=== PATIENT | male | born 1970 | race Caucasian/White ===

== ENCOUNTER 2016-04-26 13:06 | Emergency (ER) | payer OTHER ==
[2016-04-26 13:18] VITALS: BP 148/93
--- NOTE | 2016-04-26 14:07 | UC ---
Dizzy HPI HPI Summary: SUDDEN ONSET OF DIZZINESS THIS MORNING WHILE ROLLING OVER IN BED TO TURN OFF ALARM CLOCK. LASTED LESS THAN A MINUTE BUT THEN HAD SOME RESIDUAL LIGHTHEADEDNESS AFTER. HAS HAD EPISODES THROUGHOUT THE DAY WITH CHANGE IN HEAD POSITION. SX IMPROVE WHEN HE IS STILL. DENIES NAUSEA, HEARING LOSS, TINNITIS. NO RECENT ILLNESS. - History Of Current Complaint Chief Complaint: UCHeadache Stated Complaint: DIZZY Time Seen by Provider: 04/26/16 13:34 Hx Obtained From: Patient Onset/Duration: Sudden Onset, Lasting Hours, Still Present Timing: Minutes Severity Initially: Moderate Severity Currently: Moderate Pain Intensity: 1 Pain Scale Used: 0-10 Numeric Character: Room Spinning, Lightheaded Aggravating Factor(s): Position Change, Change In Head Position Alleviating Factor(s): Rest Associated Signs And Symptoms: Negative: Nausea, Vomiting, Diaphoresis, Tinnitus , Chest Pain, SOB, Palpitations, Visual Changes, Decreased Oral Intake, Change In Medication - Allergies/Home Medications Allergies/Adverse Reactions: Allergies Allergy/AdvReac Type Severity Reaction Status Date / Time No Known Allergies Allergy Verified 04/26/16 13:12 Home Medications: Home Medications Omeprazole CAP* [Prilosec CAP* 20 MG] 20 mg PO DAILY PRN 04/26/16 [History Confirmed 04/26/16] PMH/Surg Hx/FS Hx/Imm Hx Endocrine History Of: Denies: Diabetes, Thyroid Disease Cardiovascular History Of: Reports: Hypertension Denies: Cardiac Disorders Respiratory History Of: Denies: COPD, Asthma GI/ History Of: Denies: Ulcer - Surgical History Surgical History: None - Family History Known Family History: Positive: Hypertension, Diabetes - Social History Alcohol Use: Weekly Alcohol Amount: 1-2 glasses of wine couple times of week Substance Use Type: None Smoking Status (MU): Former Smoker Type: Cigarettes Length of Time of Smoking/Using Tobacco: 11 YEARS Have You Smoked in the Last Year: No When Did the Patient Quit Smoking/Using Tobacco: 02/17/1999 Review of Systems Constitutional: Negative ENT: Negative Respiratory: Negative Cardiovascular: Negative Gastrointestinal: Negative Neurological: Headache, Other - DIZZY All Other Systems Reviewed And Are Negative: Yes Physical Exam Triage Information Reviewed: Yes Appearance: Well-Appearing, No Pain Distress, Well-Nourished Vital Signs: Initial Vital Signs Temp 96.0 F 04/26/16 13:13 Pulse 90 04/26/16 13:13 Resp 16 04/26/16 13:13 BP 148/93 04/26/16 13:13 Pulse Ox 97 04/26/16 13:13 Eye Exam: Normal Eyes: Positive: Conjunctiva Clear ENT: Positive: Hearing grossly normal Neck: Positive: Supple, Nontender, No Lymphadenopathy, Other: - NEG KERNIG, NEG BRUDZINSKI Respiratory Exam: Normal Cardiovascular Exam: Normal Abdomen Description: Positive: Soft Musculoskeletal: Positive: No Edema Neurological: Positive: Alert, Other: - POS GINETTE-HALLPIKE Psychological: Positive: Age Appropriate Behavior Skin: Negative: rashes Diagnostics - EKG Cardiac Rate: NL - 77 BPM Cardiac Rhythm: Sinus: Normal Ectopy: None ST Segment: Normal Dizzy Course/Dx - Differential Dx/Diagnosis Provider Diagnoses: BPPV Discharge - Discharge Plan Condition: Stable Disposition: HOME Prescriptions: Meclizine HCl [Meclizine 25] 25 mg PO TID PRN #30 tab PRN Reason: Dizziness Patient Education Materials: Benign Paroxysmal Positional Vertigo (ED) Referrals: Madi Stringer PA [Primary Care Provider] - If Needed Additional Instructions: Benign paroxysmal positional vertigo (BPPV) - sometimes called benign positional vertigo, positional vertigo, postural vertigo, or simply vertigo, is probably the most commonly recognized cause of vertigo. It is most commonly attributed to calcium debris within the posterior semicircular canal (inner ear) , known as canalithiasis. Classically, patients describe a brief spinning sensation brought on when turning in bed or tilting the head backward to look up. The dizziness is quite brief, usually seconds, but less commonly it can last minutes. It may be severe enough to halt activity for this duration. Patients may experience nausea but rarely vomit. Ear pain, hearing loss, and tinnitus are absent. The diagnosis of BPPV is suggested by its historical description and confirmed by Ginette-Hallpike maneuver. The natural history of BPPV is one of repeated, brief vertiginous episodes that are predictably provoked. BPPV can be treated by canalith repositioning maneuvers. HANDOUTS PROVIDED FOR MIN MOORE
== END 2016-04-26 14:22 | disposition home or self-care (01) ==
LOC: UCEAST 13:06
DX: H81.10 Benign paroxysmal vertigo, unspecified ear (principal); Z87.891 Personal history of nicotine dependence
CPT/HCPCS: 93005; 99212; G0463

== ENCOUNTER 2017-04-01 10:46 | Emergency (ER) | payer OTHER ==
[2017-04-01 11:33] VITALS: BP 138/89
--- NOTE | 2017-04-01 11:35 | UC ---
FLU HPI - HPI Summary HPI Summary: Pt presents with sinus pain/pressure/congestion, productive cough, and chest congestion for the last 2 days. He tells me his was diagnosed with the flu yesterday and he is asking for treatment with tamifu. Has not taken anything for his symptoms. Denies fever, chills, SOB, chest pain, abdominal pain, n/v/d/c - History of Current Complaint Chief Complaint: UCRespiratory Stated Complaint: CONGESTED Time Seen by Provider: 04/01/17 11:13 Hx Obtained From: Patient Severity Currently: None Pain Intensity: 0 - Allergy/Home Medications Allergies/Adverse Reactions: Allergies Allergy/AdvReac Type Severity Reaction Status Date / Time No Known Allergies Allergy Verified 04/26/16 13:12 Home Medications: Home Medications D-Methorphan/PE/Acetaminophen [Day Multi-Symp Flu-Severe Cold] 04/01/17 [ History] PMH/Surg Hx/FS Hx/Imm Hx GI/ History: Gastroesophageal Reflux - Surgical History Surgical History: None - Family History Known Family History: Positive: None, Hypertension, Diabetes - Social History Occupation: Employed Full-time Lives: With Family Alcohol Use: Weekly Alcohol Amount: 1-2 glasses of wine couple times of week Substance Use Type: None Smoking Status (MU): Former Smoker Type: Cigarettes Length of Time of Smoking/Using Tobacco: 11 YEARS Have You Smoked in the Last Year: No When Did the Patient Quit Smoking/Using Tobacco: 02/17/1999 Review of Systems Constitutional: Negative Skin: Negative Eyes: Negative ENT: Sinus Congestion, Sinus Pain/Tenderness Respiratory: Cough Cardiovascular: Negative Gastrointestinal: Negative Musculoskeletal: Negative Neurological: Negative Psychological: Negative All Other Systems Reviewed And Are Negative: Yes Physical Exam Triage Information Reviewed: Yes Appearance: Well-Appearing, No Pain Distress, Well-Nourished Vital Signs: Initial Vital Signs Temp 97.3 F 04/01/17 11:25 Pulse 84 04/01/17 11:25 Resp 18 04/01/17 11:25 BP 138/89 04/01/17 11:25 Pulse Ox 100 04/01/17 11:25 Vital Signs Reviewed: Yes Eyes: Positive: Conjunctiva Clear. Negative: Conjunctiva Inflamed, Discharge ENT: Positive: Hearing grossly normal, Pharynx normal, TMs normal, Uvula midline. Negative: Pharyngeal erythema, Nasal congestion, Nasal drainage, TM bulging, TM dull, TM red, Tonsillar swelling, Tonsillar exudate, Sinus tenderness Neck: Positive: Supple, Nontender, No Lymphadenopathy Respiratory: Positive: No respiratory distress, No accessory muscle use, Crackles - AQUILINO. Negative: Wheezing Cardiovascular: Positive: RRR, No Murmur, Pulses Normal Neurological: Positive: Alert Psychological: Positive: Age Appropriate Behavior Skin: Negative: rashes Flu Course/Dx - Course Course Of Treatment: I told pt I would like to get a CXR due to his AQUILINO crackles , but he refused as he has to take his daughter to work. Will treat as if PNA. - Differential Dx/Diagnosis Provider Diagnoses: Influenza Discharge - Discharge Plan Condition: Stable Disposition: HOME Prescriptions: Azithromycin TAB* [Zithromax TAB (Z-MARY) 250 mg #6 tabs] 2 tab PO .TODAY, THEN 1 DAILY #1 mary Oseltamivir CAP* [Tamiflu CAP*] 75 mg PO BID #10 cap Patient Education Materials: Influenza (DC) Referrals: Madi Stringer PA [Primary Care Provider] - Additional Instructions: If you develop a fever, shortness of breath, chest pain, new or worsening symptoms - please call your PCP or go to the ED. Your blood pressure was high at todays visit. Please see your primary provider within 4 weeks for recheck and re-evaluation.
== END 2017-04-01 11:57 | disposition home or self-care (01) ==
LOC: UCEAST 10:46
DX: J11.1 Influenza due to unidentified influenza virus with other respiratory manifestations (principal); K21.9 Gastro-esophageal reflux disease without esophagitis; Z87.891 Personal history of nicotine dependence
CPT/HCPCS: 99212; G0463

== ENCOUNTER 2018-02-17 14:10 | Emergency (ER) | payer OTHER ==
[2018-02-17 14:23] VITALS: BP 170/80
--- NOTE | 2018-02-17 14:45 | UC ---
Dizzy HPI HPI Summary: Patient reports intermittent episodes of dizziness associated with shortness of breath, sweats and nausea over the past 1 month. Has been increasing in frequency over the past week or so. Is now occurring multiple times daily. Had 3 episodes within one hour just prior to arrival. Denies chest pain or fever. - History Of Current Complaint Chief Complaint: UCRespiratory Stated Complaint: SHORTNESS OF BREATH Time Seen by Provider: 02/17/18 14:29 Hx Obtained From: Patient, Family/Mental Health Program Director - Onset/Duration: Gradual Onset, Lasting Weeks, Still Present Timing: Intermittent Episode Lasting - MINUTES Severity Initially: Moderate Severity Currently: Moderate Pain Intensity: 0 Pain Scale Used: 0-10 Numeric Character: Lightheaded, Dizzy Aggravating Factor(s): Nothing Alleviating Factor(s): Other - SPONTANEOUS RESOLUTION Associated Signs And Symptoms: Positive: Nausea, SOB. Negative: Chest Pain - Allergies/Home Medications Allergies/Adverse Reactions: Allergies Allergy/AdvReac Type Severity Reaction Status Date / Time No Known Allergies Allergy Verified 02/17/18 14:23 Home Medications: Home Medications Ibuprofen TAB* [Advil TAB*] 200 mg PO Q6H PRN 02/17/18 [History Confirmed ] PMH/Surg Hx/FS Hx/Imm Hx Cardiovascular History: Hypertension - UNTREATED - Surgical History Surgical History: None - Family History Known Family History: Positive: Cardiac Disease, Hypertension, Diabetes - Social History Alcohol Use: Occasionally Alcohol Amount: 1-2 glasses of wine couple times of week Substance Use Type: None Smoking Status (MU): Former Smoker Type: Cigarettes Length of Time of Smoking/Using Tobacco: 11 YEARS Have You Smoked in the Last Year: No When Did the Patient Quit Smoking/Using Tobacco: 02/17/1999 Review of Systems All Other Systems Reviewed And Are Negative: Yes Constitutional: Positive: Fatigue Skin: Positive: Other - SWEATY Respiratory: Positive: Shortness Of Breath Cardiovascular: Positive: Negative Gastrointestinal: Positive: Negative Neurological: Positive: Other - DIZZY Physical Exam Triage Information Reviewed: Yes Appearance: Well-Appearing, No Pain Distress, Well-Nourished Vital Signs: Initial Vital Signs Temp 97.0 F 02/17/18 14:16 Pulse 81 02/17/18 14:16 Resp 16 02/17/18 14:16 BP 170/80 02/17/18 14:16 Pulse Ox 100 02/17/18 14:16 Vital Signs Reviewed: Yes Eyes: Positive: Conjunctiva Clear ENT: Positive: Hearing grossly normal Neck: Positive: Supple Respiratory Exam: Normal Cardiovascular: Positive: Other: - IRREGULAR Abdomen Description: Positive: Nontender, Soft Bowel Sounds: Positive: Present Musculoskeletal: Positive: No Edema Neurological: Positive: Alert Psychological: Positive: Age Appropriate Behavior Skin: Positive: Other - SWEATY Diagnostics - EKG Cardiac Rate: NL - 92BPM Cardiac Rhythm: Sinus: Normal Ectopy: PVCs ST Segment: Normal Dizzy Course/Dx - Course Course Of Treatment: PT OFFERED TRANSPORT TO THE ED BY AMBULANCE BUT DECLINES. ADVISED THAT BY NOT TRAVELING IN A MONITORED SETTING HE COULD BE RISKING WORSENING OF HIS CONDITION THAT COULD POSE A THREAT TO HIS LIFE, HEALTH AND MEDICAL SAFETY. HE VERBALIZES UNDERSTANDING AND CONTINUES TO DECLINE AMBULANCE TRANSFER. - Differential Dx/Diagnosis Provider Diagnosis: Dizziness, PVCs (premature ventricular contractions) Discharge - Sign-Out/Discharge Documenting (check all that apply): Patient Departure All imaging exams completed and their final reports reviewed: No Studies - Discharge Plan Condition: Stable Disposition: TRANS [facility]HER [facility] Patient Education Materials: Dizziness (ED) Referrals: Madi Stringer PA [Primary Care Provider] - If Needed Additional Instructions: [place] [facility] [facility] FOR FURTHER EVALUATION. YOU HAVE DECLINED TRANSFER TO THE ED BY AMBULANCE. BE ADVISED THAT BY NOT TRAVELING IN A MONITORED SETTING YOU COULD BE RISKING WORSENING OF YOUR CONDITION THAT COULD POSE A THREAT TO YOUR LIFE, HEALTH AND MEDICAL SAFETY. - Billing Disposition and Condition Condition: STABLE Disposition: Trans Higher Lvl of Care Fac
== END 2018-02-17 14:45 | disposition short-term general hospital (02) ==
LOC: UCEAST 14:10
DX: I49.3 Ventricular premature depolarization (principal); R42 Dizziness and giddiness; R11.0 Nausea; I10 Essential (primary) hypertension; Z87.891 Personal history of nicotine dependence
CPT/HCPCS: 93005; 99212; G0463

== ENCOUNTER 2018-02-17 15:03 | Observation (INO) | payer OTHER ==
[2018-02-17] MEDS ORDERED: Aspirin 81 mg CHEW TAB* 81 MG TAB.CHEW PO ONE (15:25)
--- NOTE | 2018-02-17 15:25 | ED ---
Palpitations / Dysrhythmia - HPI Summary HPI Summary: This patient is a 47 year old M presenting to [facility] after being sent by [facility] for an arrhythmia. The patient originally complained of SOB, dizziness, chills, and diaphoresis that occur together, he describes these as episodes. The patient rates the pain 2/10 in severity. Symptoms alleviated by breathing cold air and spontaneous resolution. He states sometime he will wake up in the middle of the night with SOB that he describes as gasping for air and that he does snore. He has had 4 of these episodes today. The EKG done at [facility] was done during of the episodes. He also c/o chest pressure unrelated to the episodes, it is worse with deep breaths. He is not on any prescription drugs currently. - History of Current Complaint Chief Complaint: EDDysrhythmPalp Time Seen by Provider: 02/17/18 15:15 Hx Obtained From: Patient Onset/Duration: Lasting Minutes, Resolved Timing: Constant Severity Initially: Moderate Severity Currently: None Character: Irregular - per [facility] Associated Signs & Symptoms: Shortness of Breath, Diaphoresis - Allergy/Home Medications Allergies/Adverse Reactions: Allergies Allergy/AdvReac Type Severity Reaction Status Date / Time No Known Allergies Allergy Verified 02/17/18 14:23 PMH/Surg Hx/FS Hx/Imm Hx Endocrine/Hematology History: Denies: Hx Diabetes, Hx Thyroid Disease Cardiovascular History: Reports: Hx Hypertension - NOT ON MEDS Denies: Hx Cardiac Arrest, Hx Peripheral Vascular Disease Respiratory History: Denies: Hx Asthma, Hx Chronic Obstructive Pulmonary Disease (COPD) GI History: Denies: Hx Ulcer Neurological History: Denies: Hx Seizures, Hx Spinal Cord Injury Psychiatric History: Denies: Hx Post Traumatic Stress Disorder Infectious Disease History: No Infectious Disease History: Denies: Hx Clostridium Difficile, Hx Hepatitis, Hx Human Immunodeficiency Virus (HIV), History Other Infectious Disease, Traveled Outside the [place] in Last 30 Days - Family History Known Family History: Positive: Cardiac Disease, Hypertension, Diabetes - Social History Alcohol Use: Occasionally Alcohol Amount: 1-2 glasses of wine couple times of week Substance Use Type: Reports: None Smoking Status (MU): Former Smoker Type: Cigarettes Length of Time of Smoking/Using Tobacco: 11 YEARS Have You Smoked in the Last Year: No Review of Systems Positive: Chills, Skin Diaphoresis. Negative: Fever Negative: Erythema Negative: Sore Throat Positive: Chest Pain Positive: Shortness Of Breath. Negative: Cough Negative: Abdominal Pain, Vomiting, Nausea Negative: dysuria, hematuria Negative: Myalgia, Edema Negative: Rash Neurological: Other - dizziness All Other Systems Reviewed And Are Negative: Yes Physical Exam - Summary Physical Exam Summary: Constitutional: Well-developed, Well-nourished, Alert. (-) Distressed Skin: diaphoretic HENT: Normocephalic; Atraumatic Eyes: Conjunctiva normal Neck: Musculoskeletal ROM normal neck. (-) JVD, (-) Stridor, (-) Tracheal deviation Cardio: Rhythm regular, rate normal, Heart sounds normal; Intact distal pulses; The pedal pulses are 2+ and symmetric. Radial pulses are 2+ and symmetric. (-) Murmur Pulmonary/Chest wall: Effort normal. (-) Respiratory distress, (-) Wheezes, (-) Rales Abd: Soft, (-) epigastric tenderness, (-) Distension, (-) Guarding, (-) Rebound Musculoskeletal: (-) Edema Lymph: (-) Cervical adenopathy Neuro: Alert, Oriented x3 Psych: Mood and affect Normal Triage Information Reviewed: Yes Vital Signs On Initial Exam: Initial Vitals Temp Pulse Resp BP Pulse Ox 96.5 F 47 18 178/82 99 02/17/18 15:05 02/17/18 15:05 02/17/18 15:05 02/17/18 15:05 02/17/18 15:05 Vital Signs Reviewed: Yes Diagnostics - Vital Signs Vital Signs Temp Pulse Resp BP Pulse Ox 02/17/18 15:20 99 02/17/18 15:18 92 23 161/102 99 02/17/18 15:15 67 95 02/17/18 15:05 96.5 F 47 18 178/82 99 - Laboratory Result Diagrams: 02/17/18 15:30 02/17/18 15:30 Lab Statement: Any lab studies that have been ordered have been reviewed, and results considered in the medical decision making process. - EKG 1516 Cardiac Rate: NL EKG Rhythm: Sinus Rhythm - at 80 BPM Summary of EKG Findings: no STEMI Course/Dx - Course Assessment/Plan: This patient is a 47 year old M presenting to [facility] after being sent by [facility] for an arrhythmia. The patient originally complained of SOB, dizziness, chills, and diaphoresis that occur together, he describes these as episodes. The patient rates the pain 2/10 in severity. Symptoms alleviated by breathing cold air and spontaneous resolution. He states sometime he will wake up in the middle of the night with the SOB and that he does snore. He has had 4 of these episodes today. The EKG done at [facility] was done during of the episodes. He also c/o chest pressure unrelated to the episodes, it is worse with deep breaths. He is not on any prescription drugs currently. An EKG reveals NSR and no STEMI. Blood work obtained. The patient will be admitted for serial troponins and a stress test. In the ED course the patient was given ASA, tylenol, and TUMS. We discussed patient care with Dr. Posey and she has accepted the patient for admission. Patient will be admitted. The patient is agreeable with this plan. - Diagnoses Provider Diagnoses: Dizziness, SOB (shortness of breath), Diaphoresis, Uncontrolled hypertension - Physician Notifications Discussed Care Of Patient With: Nelly Posey Time Discussed With Above Provider: 17:29 Instructed by Provider To: Admit As Observation Discharge - Sign-Out/Discharge Documenting (check all that apply): Patient Departure - admitted All imaging exams completed and their final reports reviewed: Yes - Discharge Plan Condition: Fair Disposition: ADMITTED TO [facility] - Attestation Statements Document Initiated by Scribe: Yes Documenting Scribe: Sukhjinder Salas Provider For Whom Scribe is Documenting (Include Credential): Ricky Cochran MD Scribe Attestation: Sukhjinder Lim , scribed for Ricky Cochran MD on 02/17/18 at 1834.
[2018-02-17 15:40] LABS: ABS Basophils 0.1 10^3/ul (0-0.2); ABS Eosinophils 0.1 10^3/ul (0-0.6); ABS Lymphocytes 2.3 10^3/ul (1.0-4.8); ABS Monocytes 0.9 10^3/ul (0-0.8); ABS Neutrophils 5.6 10^3/ul (1.5-7.7); ABS Nucleated RBC 0 10^3/ul; Eosinophil % 0.8 %; Hematocrit 47 % (42-52); Hemoglobin 16.1 g/dl (14.0-18.0); Lymphocyte % 25.4 %; Mean Corpuscular HGB Conc 34 g/dl (31-36); Mean Corpuscular Hemoglobin 31 pg (27-31); Mean Corpuscular Volume 91 fL (80-94); Mean Platelet Volume 7.8 fL (7.4-10.4); Nucleated Red Blood Cells % 0.1; Platelet Count 263 10^3/ul (150-450); Red Blood Count 5.21 10^6/ul (4.00-5.40); Red Cell Distribution Width 13 % (10.5-15); White Blood Count 8.9 10^3/ul (3.5-10.8)
[2018-02-17 16:08] LABS: Albumin 4.2 g/dL (3.2-5.2); Albumin/Globulin Ratio 1.6 (1-3); BUN/Creatinine Ratio 17.4 (8-20); Calcium 9.2 mg/dL (8.6-10.3); EGFR Non-African American 95.3 (>60); Globulin 2.7 g/dL (2-4); Potassium 4.1 mmol/L (3.5-5.0); Total Bilirubin 0.3 mg/dL (0.2-1.0); Total Protein 6.9 g/dL (6.4-8.9)
[2018-02-17 17:08] LABS: Free T4 0.81 ng/dL (0.61-1.12)
[2018-02-17] MEDS ORDERED: Calcium Carbonate CHEW TAB* 500 MG (TUMS) PO PRN (17:40)
[2018-02-17] MEDS ORDERED: Acetaminophen TAB* 325 MG PO PRN (17:40)
--- NOTE | 2018-02-17 19:52 | HP ---
CC: YAHIR Aleman * HISTORY AND PHYSICAL: DATE OF ADMISSION: 02/17/18 PRIMARY CARE PROVIDER: Dr. Ervin Stringer. CHIEF COMPLAINT: Dizziness and sweats. HISTORY OF PRESENT ILLNESS: Mr. Bear is a 47-year-old obese male who has no significant past medical history, but presents to initially urgent care with complaints of episodes of dizziness, shortness of breath, and diaphoresis and subsequently sent to the emergency room for evaluation. The patient states that over approximately the last 1 month or so, he has been having initially rare episodes where he would develop a sensation that he could not clear phlegm from his throat. He would then feel a beltran of hotness go through his body. He would then begin to develop profuse diaphoresis. He would feel lightheaded and dizzy and he would notice his blood pressure would go up. These ultimately would pass with time. He continued to have intermittent episodes of this; however, over the last 3 days or so, they have become much more intense and much more frequent. The patient's states that he has been waking up in the middle of the night frequently with this and not been getting more than a couple of hours of sleep at a time. The patient has become very concerned about these episodes and today while sitting in the car having another episode, he decided to come for evaluation. He describes these episodes as not being completely related to any one thing in particular. He at times had thought may be it was related to eating dairy; however, this has not proved to be true. He will have them no matter what he is eating. He will sometimes get them at rest and sometimes with exertion. PAST MEDICAL HISTORY: 1. GERD. 2. Episode of vertigo in 2017. PAST SURGICAL HISTORY: None. MEDICATIONS: None. ALLERGIES: None. FAMILY HISTORY: Mom is living, she is 78 and healthy. Dad is living, he is 80 and has a history of hypertension. SOCIAL HISTORY: The patient is a nonsmoker. He drinks alcohol on occasion. He works at [email or web address]. He is . He has 2 children. His is his healthcare proxy. REVIEW OF SYSTEMS: A complete 11-system review of systems is obtained. Pertinent positives and negatives are as per HPI and otherwise negative. PHYSICAL EXAMINATION GENERAL: The patient is a well-developed, middle-aged obese male, seen sitting up in the stretcher, in no acute distress. VITAL SIGNS: Blood pressure 120/87, pulse 83, respirations 12, temp 96.5, O2 sat 97% on room air. HEENT: Pupils are equal and round. Extraocular muscles are intact. Oropharynx is clear. Oral mucosa is moist. There is no submandibular, cervical , or supraclavicular adenopathy. Thyroid is not enlarged. No thyroid nodules noted. PULMONARY: Lungs are clear to auscultation bilaterally. CARDIAC: Normal S1, S2. Regular rate and rhythm. I do not appreciate any murmurs. There is trace right lower extremity pitting edema. ABDOMEN: Bowel sounds present. Abdomen is soft, nontender, nondistended. MUSCULOSKELETAL: There is no cyanosis or clubbing of the digits. There is full active range of motion of all 4 extremities. NEURO: Cranial nerves II through XII are grossly intact. Sensation is intact to light touch throughout. Strength is 5/5 and symmetric to both upper and lower extremities bilaterally. PSYCH: The patient is alert. He is oriented x3. Affect appears appropriate. SKIN: Warm and dry. There are no rashes. DIAGNOSTIC STUDIES/LAB DATA: WBC 8.9, hemoglobin 16.1, hematocrit 47, platelets 263. Sodium 139, potassium 4.1, chloride 106, CO2 27, BUN 15, creatinine 0.86, glucose 102. Lactic acid 1.2. Calcium 9.2, bilirubin 0.3, AST 15, ALT 28, alk phos 59. Troponin 0.01. Albumin 4.2. TSH pending. Free T4 0.81. EKG reveals normal sinus rhythm without any acute ST-T wave abnormalities. ASSESSMENT AND PLAN: Mr. Bear is a 47-year-old male with no significant past medical history who presents to the emergency room with complaints of episodes of feeling hot, short of breath, lightheaded, and diaphoretic. 1. Diaphoresis, shortness of breath, and dizziness. The etiology of this is not completely clear. Reportedly, the patient had a "full blown attack" while getting his EKG at [facility]. That EKG revealed sinus rhythm with frequent PVCs. I am suspicious that perhaps he is just quite symptomatic from PVCs. He will be monitored on telemetry. Transthoracic echocardiogram will be ordered as well and exercise stress test. The patient will also be evaluated for nocturnal hypoxia with nocturnal desaturation study. Further recommendations will be made tomorrow after cardiac testing is complete. 2. Gastroesophageal reflux disease. This is symptomatically managed. PRN Tums will be available. 3. DVT prophylaxis. According to the Adult Thrombosis Prophylaxis Risk Factor Assessment Guide, the patient has a total risk factor score of 2, making him moderate risk. Ambulation will be utilized as DVT prophylaxis. 4. Code status is full. TIME SPENT: 55 minutes was spent admitting this patient. [id number]/[facility] #: [id number] SO
[2018-02-17 19:56] LABS: TSH (Thyroid Stimulating Horm) 1.84 mcIU/mL (0.34-5.60)
[2018-02-18] MEDS ORDERED: Perflutren Lipid Microsphere* 3 ML VIAL ONE (08:52)
--- NOTE | 2018-02-18 14:19 | ECHO ---
Patient: CORRINE MORALES [facility] Rec#: [id number] : 1970 Date: 02/18/2018 Age: 47y Height: 196 cm / 77.2 in Weight: 152 kg / 335.0 lbs Sex: M BSA: 2.79 Room#: [facility] Admit Date#: 02/17/2018 Type: Inpatient Referring: Nelly Posey DO Reading: Thelma Willoughby MD County Manager: Maya Peters RDCS CC: YAHIR Loera Transthoracic Echocardiogram Indication: Dizziness BP: 154/91 HR: 73 Rhythm: NSR with PVCs Findings History: Obesity,GERD. Technical Comments: The study is technically limited due to patient body habitus. Definity used to enhance images. Completed at 0935. Left Ventricle: The left ventricular chamber size is normal. Posterior wall hypertrophy is observed. Global left ventricular wall motion and contractility are within normal limits. The estimated ejection fraction is 50-55%. There is no consistent Doppler evidence of clinically significant diastolic dysfunction. Left Atrium: The left atrium is mildly dilated. Right Ventricle: The right ventricular cavity size is normal. The right ventricular global systolic function is normal. Right Atrium: The right atrium is not well visualized. Aortic Valve: The aortic valve is trileaflet. There is no evidence of aortic regurgitation. There is no evidence of aortic stenosis. Mitral Valve: The mitral valve leaflets appear normal. There is no evidence of mitral regurgitation. There is no evidence of mitral stenosis. Tricuspid Valve: The tricuspid valve leaflets are normal. There is no evidence of tricuspid valve regurgitation. Unable to estimate the right ventricular systolic pressure. There is no tricuspid stenosis. Pulmonic Valve: The pulmonic valve appears normal. There is no evidence of pulmonic regurgitation. There is no pulmonic stenosis. Pericardium: A pericardial fat pad is visualized. Aorta: There is no dilatation of the ascending aorta. There is no dilatation of the aortic arch. There is mild dilatation of the aortic root. Pulmonary Artery: The main pulmonary artery appears normal. Venous: The venous system is not well visualized. Contrast: Definity was used to optimize study. A total of 3 ml used. Intravenous contrast was used to enhance endocardial border definition. Conclusions The left ventricular chamber size is normal. Posterior wall hypertrophy noted Global left ventricular wall motion and contractility are within normal limits. The estimated ejection fraction is 50-55%. The right ventricular global systolic function is normal. All valves show normal function. No prior echo to compare. Measurements Name Value Normal Range RVIDd (AP) 2D 3.3 cm (0.9 - 2.6) IVSd (2D) 1 cm (0.6 - 1) LVPWd (2D) 1.5 cm (0.6 - 1) LVIDd (2D) 4.7 cm (3.6 - 5.4) LVIDs (2D) 3.1 cm - Aortic Annulus 2.2 cm (1.4 - 2.6) Ao root diameter (2D) 3.7 cm (2.1 - 3.5) Ascending Ao 2.9 cm (2.1 - 3.4) Aortic arch 3.1 cm (1.8 - 3.4) Descending Ao 0.7 cm - LA dimension (AP) 2D 4.3 cm (2.3 - 3.8) Name Value Normal Range MV E-wave Vmax 0.7 m/sec - MV deceleration time 257 msec - MV A-wave Vmax 0.6 m/sec - LV septal e' Vmax 0.09 m/sec - LV lateral e' Vmax 0.09 m/sec - LV E:e' septal ratio 7.78 ratio - LV E:e' lateral ratio 7.78 ratio - Name Value Normal Range AV Vmax 1 m/sec - AV VTI 21 cm - AV peak gradient 4 mmHg - AV mean gradient 2 mmHg - LVOT Vmax 0.9 m/sec - LVOT VTI 21 cm - LVOT peak gradient 3 mmHg - LVOT mean gradient 2 mmHg - Name Value Normal Range PV Vmax 0.8 m/sec - PV peak gradient 3 mmHg -
[2018-02-18] MEDS ORDERED: Ibuprofen TAB* 600 MG PO ONE (16:05)
[2018-02-18] MEDS ORDERED: Metoprolol Tartrate TAB* 25 MG PO SCH ×2 (16:09→21:00)
[2018-02-18 16:55] VITALS: BP 140/86
--- NOTE | 2018-02-18 19:46 | DS ---
CC: YAHIR Aleman * DISCHARGE SUMMARY: DATE OF ADMISSION: 02/17/18 DATE OF DISCHARGE: 02/18/18 PRIMARY CARE PROVIDER: YAHIR Aleman PRINCIPAL DIAGNOSIS: Symptomatic premature ventricular contractions. SECONDARY DIAGNOSIS: Gastroesophageal reflux disease. DISCHARGE MEDICATIONS: 1. Omeprazole 20 mg p.o. daily p.r.n., GERD. 2. Ibuprofen 200 mg p.o. q.6 hours p.r.n. pain. 3. Metoprolol tartrate 12.5 mg p.o. q.12 hours. HOSPITAL COURSE: Mr. Bear is a 47-year-old male who states over the last 1 month, he has been having episodes where he feels as if he has something stuck in his throat and needs to clear it. He then begins to cough or clear his throat when he then develops diaphoresis, shortness of breath, and lightheadedness. The patient states that these episodes were becoming more frequent and ultimately presented to the urgent care for evaluation of this. While at urgent care, he had an EKG during one of these events and it revealed PVCs. The patient was sent to the emergency room for evaluation. The decision was made to admit the patient under observation status to obtain an echocardiogram and an exercise stress test. The patient had another event on the day of discharge. This too was correlated with PVCs. The patient's transthoracic echocardiogram did not reveal any concerning findings. Exercise stress test did reveal hypertensive response as well as frequent PVCs including bigemini. The patient, however, did not have any of spells during the stress test, but states that the stress test was difficult. Ultimately, it was decided that the patient was likely suffering from symptomatic PVCs. It is likely that this was causing the throat sensation and the need to cough. I questioned if he may have been waggling when trying to clear his throat and in return causing this diaphoresis and lightheadedness. The patient will be started on metoprolol tartrate 12.5 mg p.o. twice daily to try to suppress the PVCs. This may also help with his hypertensive response with exercise. The patient should have an event monitor placed as an outpatient. This referral will need to be made by the patient's primary care provider. This way, the patient can correlate any symptoms with his cardiac rhythm. The patient has also been instructed if the metoprolol does not help with his symptoms, perhaps Ear, Nose, and Throat evaluation will be warranted. FOLLOWUP CONCERNS: The patient is being discharged to home today, 02/18/18. ACTIVITY LEVEL: As tolerated. DIET: Heart-healthy. CONDITION ON DISCHARGE: Stable. TOTAL TIME SPENT: 35 minutes were spent on discharging this patient. [id number] #: [id number] MTDD
== END 2018-02-18 16:48 | disposition home or self-care (01) ==
LOC: ED 15:03 → MEDTELE 17:25
PROVIDERS: ADMIT Hospitalist; ATTEND Hospitalist
DX: I49.3 Ventricular premature depolarization (principal); K21.9 Gastro-esophageal reflux disease without esophagitis; R42 Dizziness and giddiness; R06.02 Shortness of breath; R61 Generalized hyperhidrosis; Z87.891 Personal history of nicotine dependence
CPT/HCPCS: 36415; 80053; 83605; 84439; 84443; 84484; 85025; 93005; 93306; 94762; 99284; A9270-GY; C8929; G0378

== ENCOUNTER 2018-02-19 22:33 | Emergency (ER) | payer OTHER ==
--- NOTE | 2018-02-19 23:10 | ED ---
Throat Pain/Nasal Congestion - HPI Summary HPI Summary: This patient is a 47 year old M [facility] [place] by a woman with a chief complaint of anxiety due to persistent dry mouth and dry cough since . Patient reports hot flashes, diaphoresis, lump in his throat, hoarse voice, dry heaving, and SOB. Patient denies difficulty eating or drinking or CP. The patient has been having hot flashes all year, once or twice a day, that have been gradually becoming worse. The patient was released from the hospital yesterday for similar symptoms. The patient reports that his symptoms make him feel angry. The patient took Melatonin about an hour before arriving at the ED. PMHX PVCs. RX Metoprolol. - History of Current Complaint Chief Complaint: EDGeneral Hx Obtained From: Patient Onset/Duration: Sudden Onset, Lasting Days - 8 Associated Signs And Symptoms: Positive: Hoarseness Cough: Nonproductive - Allergies/Home Medications Allergies/Adverse Reactions: Allergies Allergy/AdvReac Type Severity Reaction Status Date / Time No Known Allergies Allergy Verified 02/19/18 22:43 PMH/Surg Hx/FS Hx/Imm Hx Endocrine/Hematology History: Denies: Hx Diabetes, Hx Thyroid Disease Cardiovascular History: Reports: Hx Hypertension - NOT ON MEDS Denies: Hx Cardiac Arrest, Hx Peripheral Vascular Disease Respiratory History: Denies: Hx Asthma, Hx Chronic Obstructive Pulmonary Disease (COPD) GI History: Denies: Hx Ulcer Sensory History: Reports: Hx Contacts or Glasses Denies: Hx Hearing Aid Opthamlomology History: Reports: Hx Contacts or Glasses Neurological History: Denies: Hx Seizures, Hx Spinal Cord Injury Psychiatric History: Denies: Hx Post Traumatic Stress Disorder Infectious Disease History: No Infectious Disease History: Denies: Hx Clostridium Difficile, Hx Hepatitis, Hx Human Immunodeficiency Virus (HIV), History Other Infectious Disease, Traveled Outside the [place] in Last 30 Days - Family History Known Family History: Positive: Cardiac Disease, Hypertension, Diabetes - Social History Alcohol Use: Occasionally Alcohol Amount: 1-2 glasses of wine couple times of week Substance Use Type: Reports: None Smoking Status (MU): Former Smoker Type: Cigarettes Length of Time of Smoking/Using Tobacco: 11 YEARS Have You Smoked in the Last Year: No Review of Systems Positive: Skin Diaphoresis Positive: Other - hoarse voice Negative: Chest Pain Positive: Shortness Of Breath, Cough Positive: Other - dry heaving Positive: Anxious All Other Systems Reviewed And Are Negative: Yes Physical Exam - Summary Physical Exam Summary: Appearance: Well-appearing, Well-nourished, lying in bed comfortably Skin: Warm, dry, no obvious rash Eyes: sclera anicteric, no conjunctival pallor ENT: mucous membranes moist, pharynx appears normal Neck: Supple, nontender Respiratory: Clear to auscultation, no signs of respiratory distress Cardiovascular: Normal S1, S2. No murmurs. Normal distal pulses in tibial and radial bilaterally. Abdomen: Soft, nontender, normal active bowel sounds present Musculoskeletal: Normal, Strength/ROM Intact Neurological: A&Ox3, awake and alert, mentation is normal, speech is fluent and appropriate Psychiatric: affect is normal, does not appear anxious or depressed Triage Information Reviewed: Yes Vital Signs On Initial Exam: Initial Vitals Temp Pulse Resp BP Pulse Ox 97.5 F 84 20 156/81 100 02/19/18 22:35 02/19/18 22:35 02/19/18 22:35 02/19/18 22:35 02/19/18 22:35 Vital Signs Reviewed: Yes Diagnostics - Vital Signs Vital Signs Temp Pulse Resp BP Pulse Ox 02/19/18 22:35 97.5 F 84 20 156/81 100 - Laboratory Lab Statement: Any lab studies that have been ordered have been reviewed, and results considered in the medical decision making process. EENT Course/Dx - Course Course Of Treatment: This patient is a 47 year old M presenting to [facility] accompanied by a woman with a chief complaint of anxiety due to persistent dry mouth and dry cough since 02/10/2018. Patient reports hot flashes, diaphoresis, lump in his throat, hoarse voice, dry heaving, and SOB. Patient denies difficulty eating or drinking or CP. In the ED course the patient was given Lorazepam. Patient will be discharged with prescription for Lorazepam and follow up from Dr. Rossi. The patient is agreeable with this plan. - Diagnoses Provider Diagnoses: Anxiety Discharge - Sign-Out/Discharge Documenting (check all that apply): Patient Departure - discharge - Discharge Plan Condition: Good Disposition: HOME Prescriptions: LORazepam TAB(*) [Ativan 1 MG TAB (*)] 1 mg PO TID PRN #15 tab MDD 3 tabs PRN Reason: Anxiety LORazepam TAB(*) [Ativan 1 MG TAB (*)] 1 mg PO TID PRN #15 tab MDD 3 tabs PRN Reason: Anxiety Forms: *Work Release Referrals: Ulysses Rossi MD [Medical Doctor] - Additional Instructions: I do not have an ENT doctor container crane operator tondaryl, but Dr. Rossi and Dr. Hoang have an office nearby and should be able to help you. In my opinion, I cannot attribute your symptoms to the PVCs, and I think you need a more careful evaluation of your upper airway, which the ENT doctors can do in the office. In the interim I am prescribing a tranquilizer to help you sleep and hopefully break the cycle of clearing your throat that is just causing more irritation. - Billing Disposition and Condition Condition: GOOD Disposition: Home - Attestation Statements Document Initiated by Prateek: Yes Documenting Scribe: Felix Singh Provider For Whom Prateek is Documenting (Include Credential): Shade Ling MD Scribe Attestation: I, Felix Singh, scribed for Shade Ling MD on 02/20/18 at 0446. Scribe Documentation Reviewed: Yes Provider Attestation: The documentation as recorded by the Felix nur accurately reflects the service I personally performed and the decisions made by me, Shade Ling MD Status of Scribe Document: Viewed
[2018-02-19] MEDS ORDERED: LORazepam TAB(*) 1 MG PO ONE (23:15)
[2018-02-19 23:42] VITALS: BP 127/79
== END 2018-02-19 23:42 | disposition home or self-care (01) ==
LOC: ED 22:33
DX: F41.9 Anxiety disorder, unspecified (principal); Z82.49 Family history of ischemic heart disease and other diseases of the circulatory system; Z83.3 Family history of diabetes mellitus; Z87.891 Personal history of nicotine dependence
CPT/HCPCS: 93005; 99282; A9270-GY